=== PATIENT | male | born 1965 | race African-American/Black ===

== ENCOUNTER 2020-02-15 22:24 | Emergency (ER) | payer SELFPAY ==
[~2020-02-15] VITALS: Ht 180.3 cm; Wt 159.2 kg
[2020-02-15 22:28] VITALS: BP 169/105
--- NOTE | 2020-02-15 22:43 | NUR ---
BIBRA FROM HOME TO ER BED 12. AAOX4. NOT IN RESP DISTRESS, BREATHING EVEN AND UNLABORED. AMBULATORY. CAME IN NOSE BLEED X 3 EPISODES TODAY. PT IS NOTED HYPERTENSIVE AT 176/123. AWAITING MD FOR EVAL.
== END 2020-02-15 23:33 | disposition home or self-care (01) ==
LOC: ER 22:27
DX: R04.0 Epistaxis (principal); I10 Essential (primary) hypertension; E11.9 Type 2 diabetes mellitus without complications; Z90.49 Acquired absence of other specified parts of digestive tract; Z88.0 Allergy status to penicillin